=== PATIENT | female | born 1945 | race Caucasian/White ===

== ENCOUNTER 2020-09-17 05:22 | Inpatient (IN) | payer MEDICARE ==
[~2020-09-17] VITALS: Ht 172.7 cm; Wt 66.3 kg
[2020-09-17 07:40] VITALS: BP 108/42
[2020-09-17] MEDS ORDERED: PLEASE ENTER HEIGHT AND WEIGHT MC SCH (08:00)
[2020-09-17] MEDS ORDERED: MELATONIN 5 MG TABLET PO PRN (08:00)
[2020-09-17] MEDS ORDERED: DOCUSATE 100 MG CAPSULE PO PRN (08:00)
[2020-09-17] MEDS ORDERED: ONDANSETRON 2MG/ML, 2ML IVPush PRN (08:00)
[2020-09-17 08:12] LABS: MICROSCOPIC AUTO
[2020-09-17 08:47] LABS: MEAN CORPUSCULAR HEMOGLOBIN 22.9 pg (27.0-34.8); MEAN CORPUSCULAR HGB CONC 30.6 g/dL (32.4-35.8); MEAN PLATELET VOLUME 7.8 fL (7.4-10.4); PLATELET COUNT 308 x10^3/uL (130-400); RED BLOOD COUNT 3.67 x10^6/uL (3.82-5.3); RED CELL DISTRIBUTION WIDTH 18.7 % (9.6-15.2)
[2020-09-17] MEDS: ENOXAPARIN 40 MG/0.4 ML SQ SCH (08:52)
[2020-09-17] MEDS: PIPERACILLIN/TAZO/PMX 3.375GM 50 ML IV SCH ×3 (08:52→20:38)
[2020-09-17 08:53] LABS: ALANINE AMINOTRANSFERASE 32 U/L (12-78); ALBUMIN 1.7 g/dL (3.4-5.0); ANION GAP 6 mmol/L (5-15); CALCIUM 9.3 mg/dL (8.5-10.1); CHLORIDE 121 mmol/L (98-107)
[2020-09-17 08:55] LABS: INTERNATIONAL NORMALIZED RATIO 1.21 (0.93-1.1); PROTHROMBIN TIME 12.8 Seconds (9.6-11.5)
[2020-09-17] MEDS ORDERED: FAMOTIDINE 20 MG TABLET PO SCH (09:00)
[2020-09-17 09:01] LABS: ALKALINE PHOSPHATASE 159 U/L (45-117); BILIRUBIN,TOTAL 0.3 mg/dL (0.2-1.0); FREE T4 (FREE THYROXINE) 1.01 ng/dL (0.76-1.46); TOTAL PROTEIN 6.2 g/dL (6.4-8.2)
[2020-09-17 09:06] LABS: MD YES
[2020-09-17 09:08] LABS: ANISOCYTOSIS 1+; BAND#(MANUAL) 0.58 x10^3/uL; BANDS%(MANUAL) 4 % (0-7); BASOS#(MANUAL) 0.14 x10^3/uL (0-0.1); BASOS% (MANUAL) 1 % (0-1); LYMPH#(MANUAL) 0.72 x10^3/uL (1-3.4); LYMPHS% (MANUAL) 5 % (22-44); MONOS#(MANUAL) 0.14 x10^3/uL (0.3-2.7); MONOS% (MANUAL) 1 % (2-9); OVALOCYTES 1+; SEG#(MANUAL) 12.82 x10^3/uL (1.8-6.8); SEGS% (MANUAL) 89 % (42-75)
[2020-09-17 09:09] LABS: <PLATELET ESTIMATE> ADEQUATE; LARGE PLATELETS 1+; POLYCHROMASIA 1+
[2020-09-17] MEDS ORDERED: POTASSIUM CHLORIDE 20 MEQ TAB.ER.PRT PO ONE (09:30)
[2020-09-17] MEDS ORDERED: VENL37.52 PO (11:01)
[2020-09-17] MEDS ORDERED: METF500T17 PO (11:11)
[2020-09-17] MEDS ORDERED: MIRT15TA PO (11:12)
[2020-09-17] MEDS ORDERED: OXYB10TA26 PO (11:13)
[2020-09-17] MEDS ORDERED: PANT20TA2 PO (11:13)
[2020-09-17] MEDS ORDERED: VANCOMYCIN PER PHARMACY MC PRN (12:30)
[2020-09-17 12:58] LABS: HCT (SEDRATE) 27.5 % (34.6-47.8)
[2020-09-17] MEDS ORDERED: PHARMACOKINETIC MONITORING MC PRN (13:00)
[2020-09-17] MEDS: VANCOMYCIN 1,400 MG in SODIUM CHLORIDE 0.9% 250 ML IV SCH (14:45)
[2020-09-17] MEDS: ACETAMINOPHEN 325 MG TABLET PO PRN (14:50)
[2020-09-17 20:00] VITALS: BP 113/40
[2020-09-17] MEDS: ATORVASTATIN 40 MG TABLET PO SCH (20:34)
[2020-09-17] MEDS: FAMOTIDINE 20 MG TABLET PO SCH (20:34)
[2020-09-17] MEDS: MIRTAZAPINE 15 MG TABLET PO SCH (20:34)
[2020-09-18 02:05] VITALS: BP 121/37
[2020-09-18] MEDS: PIPERACILLIN/TAZO/PMX 3.375GM 50 ML IV SCH ×4 (02:57→19:21)
[2020-09-18 07:54] VITALS: BP 105/41
[2020-09-18] MEDS ORDERED: GADOTERATE 7.5 MMOL/15 ML VIAL ONE (09:33)
[2020-09-18] MEDS: CLOPIDOGREL 75 MG TABLET PO SCH (10:21)
[2020-09-18] MEDS: OXYBUTYNIN CHLORIDE 5 MG TABLET PO SCH (10:21)
[2020-09-18] MEDS: VENLAFAXINE 75 MG CAP ER PO SCH (10:21)
[2020-09-18] MEDS: ENOXAPARIN 40 MG/0.4 ML SQ SCH (10:22)
[2020-09-18] MEDS: VANCOMYCIN 1,400 MG in SODIUM CHLORIDE 0.9% 250 ML IV SCH (13:26)
[2020-09-18 14:09] VITALS: BP 100/30
[2020-09-18] MEDS ORDERED: DOBUTAMINE/D5W PMX 250 ML IV PRN (15:30)
[2020-09-18] MEDS: ATORVASTATIN 40 MG TABLET PO SCH (19:20)
[2020-09-18] MEDS: MIRTAZAPINE 15 MG TABLET PO SCH (19:20)
[2020-09-18 20:00] VITALS: BP 110/56
[2020-09-18] MEDS: FAMOTIDINE 20 MG TABLET PO SCH (21:00)
[2020-09-19 02:00] VITALS: BP 118/38
[2020-09-19] MEDS: PIPERACILLIN/TAZO/PMX 3.375GM 50 ML IV SCH ×4 (02:30→20:07)
[2020-09-19 05:29] LABS: ANION GAP 4 mmol/L (5-15); BASOPHILS % (AUTO) 0 % (0-1); CHLORIDE 120 mmol/L (98-107); CREATININE 0.82 mg/dL (0.55-1.02); EOSINOPHILS % (AUTO) 2 % (1-7); LYMPHOCYTES % (AUTO) 10 % (22-44); MEAN CORPUSCULAR HGB CONC 31.2 g/dL (32.4-35.8); MEAN PLATELET VOLUME 8.3 fL (7.4-10.4); MONOCYTES % (AUTO) 5 % (2-9); NEUTROPHILS % (AUTO) 82 % (42-75); PLATELET COUNT 359 x10^3/uL (130-400); RED BLOOD COUNT 3.91 x10^6/uL (3.82-5.3); RED CELL DISTRIBUTION WIDTH 18.8 % (9.6-15.2)
[2020-09-19 05:41] LABS: MD NO
[2020-09-19 08:00] VITALS: BP 99/39
[2020-09-19] MEDS: POTASSIUM CHLORIDE 20 MEQ TAB.ER.PRT PO SCH ×2 (09:02→17:41)
[2020-09-19] MEDS: CLOPIDOGREL 75 MG TABLET PO SCH (09:02)
[2020-09-19] MEDS: OXYBUTYNIN CHLORIDE 5 MG TABLET PO SCH (09:03)
[2020-09-19] MEDS: ENOXAPARIN 40 MG/0.4 ML SQ SCH (09:03)
[2020-09-19] MEDS: VENLAFAXINE 75 MG CAP ER PO SCH (09:03)
[2020-09-19 14:16] VITALS: BP 115/53
[2020-09-19] MEDS: FERROUS SULFATE 325 MG TABLET PO SCH (17:41)
[2020-09-19] MEDS: ATORVASTATIN 40 MG TABLET PO SCH (20:07)
[2020-09-19] MEDS: FAMOTIDINE 20 MG TABLET PO SCH (20:07)
[2020-09-19] MEDS: MIRTAZAPINE 15 MG TABLET PO SCH (20:07)
[2020-09-19 20:46] VITALS: BP 136/44
[2020-09-20 02:06] VITALS: BP 135/42
[2020-09-20] MEDS: PIPERACILLIN/TAZO/PMX 3.375GM 50 ML IV SCH ×4 (03:57→23:45)
[2020-09-20 07:52] VITALS: BP 147/68
[2020-09-20 10:17] LABS: ALBUMIN 2.1 g/dL (3.4-5.0); ANION GAP 7 mmol/L (5-15); BASOPHILS % (AUTO) 0 % (0-1); CALCIUM 10.4 mg/dL (8.5-10.1); CHLORIDE 123 mmol/L (98-107); EOSINOPHILS % (AUTO) 1 % (1-7); LYMPHOCYTES % (AUTO) 11 % (22-44); MEAN CORPUSCULAR HEMOGLOBIN 22.9 pg (27.0-34.8); MEAN CORPUSCULAR HGB CONC 30.6 g/dL (32.4-35.8); MEAN PLATELET VOLUME 8.2 fL (7.4-10.4); MONOCYTES % (AUTO) 4 % (2-9); NEUTROPHILS % (AUTO) 84 % (42-75); PLATELET COUNT 444 x10^3/uL (130-400); RED BLOOD COUNT 4.35 x10^6/uL (3.82-5.3)
[2020-09-20 10:18] LABS: MD NO
[2020-09-20 10:22] LABS: ALANINE AMINOTRANSFERASE 77 U/L (12-78); ALKALINE PHOSPHATASE 207 U/L (45-117); BILIRUBIN,TOTAL 0.3 mg/dL (0.2-1.0); CREATININE 0.94 mg/dL (0.55-1.02)
[2020-09-20] MEDS: FERROUS SULFATE 325 MG TABLET PO SCH ×2 (10:53→18:10)
[2020-09-20] MEDS: VENLAFAXINE 75 MG CAP ER PO SCH (10:53)
[2020-09-20] MEDS: CLOPIDOGREL 75 MG TABLET PO SCH (10:53)
[2020-09-20] MEDS: ENOXAPARIN 40 MG/0.4 ML SQ SCH (11:32)
[2020-09-20 13:02] VITALS: BP 173/67
[2020-09-20 13:22] LABS: OCCULT BLOOD NEGATIVE (NEGATIVE)
[2020-09-20 13:31] LABS: CLOSTRIDIUM DIFFICILE ANTIGEN NEGATIVE; CLOSTRIDIUM DIFFICILE TOXIN NEGATIVE (Negative)
[2020-09-20 13:40] VITALS: BP 151/56
[2020-09-20 19:50] VITALS: BP 135/65
[2020-09-20] MEDS: MIRTAZAPINE 15 MG TABLET PO SCH (21:01)
[2020-09-20] MEDS: FAMOTIDINE 20 MG TABLET PO SCH (21:01)
[2020-09-20] MEDS: ATORVASTATIN 40 MG TABLET PO SCH (21:02)
[2020-09-21 00:55] VITALS: BP 137/67
[2020-09-21] MEDS: PIPERACILLIN/TAZO/PMX 3.375GM 50 ML IV SCH ×4 (05:16→20:44)
[2020-09-21 06:32] VITALS: BP 162/62
[2020-09-21] MEDS: FERROUS SULFATE 325 MG TABLET PO SCH ×2 (08:47→17:05)
[2020-09-21] MEDS: ENOXAPARIN 40 MG/0.4 ML SQ SCH (08:47)
[2020-09-21] MEDS: VENLAFAXINE 75 MG CAP ER PO SCH (08:47)
[2020-09-21] MEDS: CLOPIDOGREL 75 MG TABLET PO SCH (08:47)
[2020-09-21 12:14] VITALS: BP 167/69
[2020-09-21 12:21] LABS: OCCULT BLOOD NEGATIVE (NEGATIVE)
[2020-09-21 20:30] VITALS: BP 146/67
[2020-09-21] MEDS: FAMOTIDINE 20 MG TABLET PO SCH (20:43)
[2020-09-21] MEDS: ATORVASTATIN 40 MG TABLET PO SCH (20:43)
[2020-09-21] MEDS: MIRTAZAPINE 15 MG TABLET PO SCH (20:43)
[2020-09-22 01:57] VITALS: BP 158/72
[2020-09-22] MEDS: PIPERACILLIN/TAZO/PMX 3.375GM 50 ML IV SCH ×4 (02:47→21:12)
[2020-09-22] MEDS: FERROUS SULFATE 325 MG TABLET PO SCH ×2 (08:34→16:57)
[2020-09-22] MEDS: VENLAFAXINE 75 MG CAP ER PO SCH (08:34)
[2020-09-22] MEDS: CLOPIDOGREL 75 MG TABLET PO SCH (08:34)
[2020-09-22] MEDS: ENOXAPARIN 40 MG/0.4 ML SQ SCH (08:36)
[2020-09-22 08:44] VITALS: BP 179/69
[2020-09-22 15:03] VITALS: BP 168/69
[2020-09-22] MEDS: LISINOPRIL 5 MG TABLET PO SCH (17:26)
[2020-09-22] MEDS ORDERED: LOPERAMIDE 2 MG CAPSULE PO PRN (17:30)
[2020-09-22 19:56] VITALS: BP 143/49
[2020-09-22] MEDS: ATORVASTATIN 40 MG TABLET PO SCH (21:11)
[2020-09-22] MEDS: MIRTAZAPINE 15 MG TABLET PO SCH (21:11)
[2020-09-22] MEDS: FAMOTIDINE 20 MG TABLET PO SCH (21:12)
[2020-09-23 02:10] VITALS: BP 135/81
[2020-09-23 02:56] LABS: OCCULT BLOOD NEGATIVE (NEGATIVE)
[2020-09-23 05:35] LABS: CHLORIDE 125 mmol/L (98-107)
[2020-09-23 05:42] LABS: ANION GAP 4 mmol/L (5-15); CALCIUM 10.3 mg/dL (8.5-10.1); CREATININE 0.74 mg/dL (0.55-1.02)
[2020-09-23 07:58] VITALS: BP 170/67
[2020-09-23] MEDS ORDERED: SODIUM CHLORIDE 0.45%, 1,000ML IVBOLUS ONE (08:00)
[2020-09-23] MEDS: VENLAFAXINE 75 MG CAP ER PO SCH (08:15)
[2020-09-23] MEDS: FERROUS SULFATE 325 MG TABLET PO SCH ×2 (08:16→18:34)
[2020-09-23] MEDS: LISINOPRIL 5 MG TABLET PO SCH (08:16)
[2020-09-23] MEDS: CLOPIDOGREL 75 MG TABLET PO SCH (08:16)
[2020-09-23] MEDS: ENOXAPARIN 40 MG/0.4 ML SQ SCH (08:17)
[2020-09-23 12:41] VITALS: BP 152/59
[2020-09-23 19:35] VITALS: BP 134/62
[2020-09-23] MEDS: ATORVASTATIN 40 MG TABLET PO SCH (20:00)
[2020-09-23] MEDS: FAMOTIDINE 20 MG TABLET PO SCH (20:00)
[2020-09-23] MEDS: MIRTAZAPINE 15 MG TABLET PO SCH (20:00)
[2020-09-24 00:21] VITALS: BP 155/70
[2020-09-24 06:43] VITALS: BP 166/67
[2020-09-24] MEDS: VENLAFAXINE 75 MG CAP ER PO SCH (09:01)
[2020-09-24] MEDS: ENOXAPARIN 40 MG/0.4 ML SQ SCH (09:02)
[2020-09-24] MEDS: FERROUS SULFATE 325 MG TABLET PO SCH ×2 (09:02→17:22)
[2020-09-24] MEDS: CLOPIDOGREL 75 MG TABLET PO SCH (09:02)
[2020-09-24] MEDS: LISINOPRIL 5 MG TABLET PO SCH (09:02)
[2020-09-24] MEDS: ACETAMINOPHEN 325 MG TABLET PO PRN (09:02)
[2020-09-24 14:09] VITALS: BP 103/65
[2020-09-24 17:33] LABS: ANION GAP 5 mmol/L (5-15); CALCIUM 9.9 mg/dL (8.5-10.1); CHLORIDE 120 mmol/L (98-107); CREATININE 0.78 mg/dL (0.55-1.02)
[2020-09-24] MEDS: SODIUM CHLORIDE 0.45% 1,000 ML IV SCH (18:05)
[2020-09-24] MEDS: POTASSIUM CHLORIDE 20 MEQ TAB.ER.PRT PO SCH (18:05)
[2020-09-24 18:20] VITALS: BP 147/66
[2020-09-24] MEDS: ATORVASTATIN 40 MG TABLET PO SCH (20:05)
[2020-09-24] MEDS: MIRTAZAPINE 15 MG TABLET PO SCH (20:05)
[2020-09-24] MEDS: FAMOTIDINE 20 MG TABLET PO SCH (20:05)
[2020-09-25 00:06] VITALS: BP 139/55
[2020-09-25] MEDS: SODIUM CHLORIDE 0.45% 1,000 ML IV SCH (05:19)
[2020-09-25 06:02] LABS: ANION GAP 6 mmol/L (5-15); CALCIUM 10.5 mg/dL (8.5-10.1); CHLORIDE 125 mmol/L (98-107)
[2020-09-25 06:05] LABS: CREATININE 0.77 mg/dL (0.55-1.02)
[2020-09-25 06:06] LABS: BASOPHILS % (AUTO) 0 % (0-1); EOSINOPHILS % (AUTO) 1 % (1-7); LYMPHOCYTES % (AUTO) 18 % (22-44); MEAN CORPUSCULAR HEMOGLOBIN 23.2 pg (27.0-34.8); MEAN CORPUSCULAR HGB CONC 30.5 g/dL (32.4-35.8); MEAN PLATELET VOLUME 8.5 fL (7.4-10.4); MONOCYTES % (AUTO) 5 % (2-9); NEUTROPHILS % (AUTO) 75 % (42-75); PLATELET COUNT 482 x10^3/uL (130-400); RED BLOOD COUNT 4.34 x10^6/uL (3.82-5.3); RED CELL DISTRIBUTION WIDTH 19.5 % (9.6-15.2)
[2020-09-25 06:22] LABS: MD NO
[2020-09-25 07:07] VITALS: BP 162/54
[2020-09-25] MEDS ORDERED: MELA5TAB14 PO (08:15)
[2020-09-25] MEDS ORDERED: MIRT-34 PO (08:15)
[2020-09-25] MEDS ORDERED: VENL75CA6 PO (08:15)
[2020-09-25] MEDS ORDERED: TRAM50TA2 PO (08:15)
[2020-09-25] MEDS ORDERED: DOCU100C33 PO (08:15)
[2020-09-25] MEDS ORDERED: FAMO20TA7 PO (08:15)
[2020-09-25] MEDS ORDERED: ATOR40TA78 PO (08:15)
[2020-09-25] MEDS ORDERED: FERR-51 PO (08:15)
[2020-09-25] MEDS ORDERED: ACET325T26 PO (08:15)
[2020-09-25] MEDS ORDERED: LISI5TAB7 PO (08:15)
[2020-09-25] MEDS ORDERED: CLOP75TA PO (08:15)
[2020-09-25] MEDS ORDERED: LOPE2CAP PO (08:15)
[2020-09-25] MEDS: VENLAFAXINE 75 MG CAP ER PO SCH (09:08)
[2020-09-25] MEDS: ENOXAPARIN 40 MG/0.4 ML SQ SCH (09:08)
[2020-09-25] MEDS: POTASSIUM CHLORIDE 20 MEQ TAB.ER.PRT PO SCH (09:08)
[2020-09-25] MEDS: CLOPIDOGREL 75 MG TABLET PO SCH (09:08)
[2020-09-25] MEDS: LISINOPRIL 5 MG TABLET PO SCH (09:09)
[2020-09-25] MEDS: FERROUS SULFATE 325 MG TABLET PO SCH (09:09)
[2020-09-25 09:58] LABS: CHLORIDE,URINE RANDOM 64 mmol/L; POTASSIUM,URINE RANDOM 14 mmol/L; SODIUM,URINE RANDOM 64 mmol/L
[2020-09-25 10:05] LABS: OSMOLALITY,URINE 187 mOsm/kg (500-850)
[2020-09-25 12:08] VITALS: BP 156/73
== END 2020-09-25 13:30 | DRG 871 ==
LOC: CCU 05:30 → 3N 09-19 09:58
PROVIDERS: ADMIT Internal Medicine; ATTEND Hospitalist
PROC: 0T9B70Z Drainage of Bladder with Drainage Device, Via Natural or Artificial Opening (ICD-10-PCS; principal; 2020-09-17)
DX: A41.9 Sepsis, unspecified organism (principal); L89.313 Pressure ulcer of right buttock, stage 3; J96.91 Respiratory failure, unspecified with hypoxia; E43 Unspecified severe protein-calorie malnutrition; N39.0 Urinary tract infection, site not specified; C79.9 Secondary malignant neoplasm of unspecified site; C34.90 Malignant neoplasm of unspecified part of unspecified bronchus or lung; E87.0 Hyperosmolality and hypernatremia; E87.6 Hypokalemia; Z20.828 Contact with and (suspected) exposure to other viral communicable diseases; Z68.22 Body mass index [BMI] 22.0-22.9, adult; D50.9 Iron deficiency anemia, unspecified; E11.51 Type 2 diabetes mellitus with diabetic peripheral angiopathy without gangrene; E78.5 Hyperlipidemia, unspecified; I10 Essential (primary) hypertension; I25.10 Atherosclerotic heart disease of native coronary artery without angina pectoris; Z86.73 Personal history of transient ischemic attack (TIA), and cerebral infarction without residual deficits; Z87.891 Personal history of nicotine dependence; Z85.118 Personal history of other malignant neoplasm of bronchus and lung; Z92.21 Personal history of antineoplastic chemotherapy; Z92.3 Personal history of irradiation; R63.1 Polydipsia
CPT/HCPCS: 36415; 71045; 72197; 80048; 80053; 81001; 82272; 82436; 82533; 82728; 82962; 83540; 83550; 83605; 83735; 83930; 83935; 84100; 84133; 84300; 84439; 84443; 85025; 85610; 85651; 86140; 87040; 87081; 87086; 87324; 87635; 93005; G0378; J1650; J2543; J3370; A9575; J7050